=== PATIENT | female | born 1985 | race Caucasian/White ===

== ENCOUNTER → 2018-02-28 | Outpatient (CLI) | payer BC, OTHER ==
--- NOTE | 2018-03-01 13:07 | RADIOLOGY IMAGING REPORT ---
FACILITY: [facility] - [place], [place] PATIENT NAME: BRIANA HOOKS : [id number] MR: [id number] V: [id number] EXAM DATE: ORDERING PHYSICIAN: SHARON SMITH TECHNOLOGIST: Debra Vela RDMS(ABD,OBGYN,BR),RVT PROCEDURE:US RIGHT BREAST COMPLETE COMPARISON:None. INDICATIONS:Right breast lump @ 9:00 position FINDINGS: Multiple sonographic images were obtained the lateral portion of the Right breast from the 6-12 o'clock position revealing no sonographic abnormality. No mammographic abnormality identified to account for patient's palpable findings therefore clinical follow-up recommended. DIAGNOSTIC CATEGORY 2--BENIGN FINDING. RECOMMENDATIONS: CLINICAL EVALUATION. IMPRESSION: BIRADS 2: Benign finding. No mammographic or sonographic abnormality is identified to account for patient's palpable findings therefore clinical follow-up recommended. Of note a negative mammogram or Ultrasound report should not preclude biopsy of the clinically suspicious lesion. Dictated by: Ashlyn Hammond M.D. on 02/28/2018 at 18:15 Transcribed by: JOSE on 03/01/2018 at 9:59 Approved by: Ashlyn Hammond M.D. on 03/01/2018 at 13:06 [facility]
--- NOTE | 2018-03-01 13:08 | RADIOLOGY IMAGING REPORT ---
FACILITY: [facility] - [place] PATIENT NAME: BRIANA HOOKS : [id number] MR: [id number] V: [id number] EXAM DATE: ORDERING PHYSICIAN: SHARON SMITH TECHNOLOGIST: Vilma Collazo PROCEDURE:BILATERAL DIAGNOSTIC DIGITAL MAMMOGRAM WITH CAD ASSISTED INTERPRETATION & 3D TOMOSYNTHESIS COMPARISON:None. INDICATIONS:Right breast lump @ 9:00 position FINDINGS: A small amount of fibroglandular tissue is seen throughout the breasts. There is no demonstration of malignant appearing mass, malignant appearing calcifications or other secondary sign of malignancy in either breast. Today's Right breast Ultrasound likewise revealed no sonographic correlate therefore clinical follow-up recommend for patient's palpable findings. DIAGNOSTIC CATEGORY 2--BENIGN FINDING. RECOMMENDATIONS: CLINICAL EVALUATION. IMPRESSION: BIRADS 2: Benign finding. No mammographic or sonographic abnormality identified to account for patient's palpable findings therefore clinical follow-up recommended. Dictated by: Ashlyn Hammond M.D. on 02/28/2018 at 18:17 Transcribed by: JOSE on 03/01/2018 at 10:03 Approved by: Ashlyn Hammond M.D. on 03/01/2018 at 13:06 [facility]
== END ==
LOC: US 01:43
PROVIDERS: ATTEND Nurse Practitioner Women's Health
DX: N63.13 Unspecified lump in the right breast, lower outer quadrant (principal)
CPT/HCPCS: 77062; 77066

== ENCOUNTER 2019-02-11 18:13 | Emergency (ER) | payer OTHER ==
[2019-02-11 18:19] VITALS: BP 113/78
[2019-02-11] MEDS ORDERED: VERA120C9 PO (18:24)
--- NOTE | 2019-02-11 18:25 | ER Report ---
History and Physical Time Seen By MD: 18:22 Hx. of Stated Complaint: PATIENT CUT RIGHT WRIST WITH A BROKEN GLASS. BLEEDING CONTROLLED AT THIS TIME. LAST TETNUS WAS 2014 HPI/ROS CHIEF COMPLAINT: Right wrist laceration HISTORY OF PRESENT ILLNESS: 33-year-old female patient presents to emergency room with complaint of right wrist laceration. Patient states that she was washing dishes when one of the glasses broke. When I broke it exploded and she is cutting her wrist. She states that she did clean it out, looked for any glass in it and did not find anything. She came in for evaluation and treatment. Patient states her last tetanus shot was in 2014. She denies having any numbness and tingling. She denies having any weakness or hand. Allergies: Coded Allergies: No Known Drug Allergies (Unverified , 02/11/19) Home Meds Reported Medications Verapamil Hcl (VERAPAMIL ER) 120 Mg Cap24h.pel, 120 MG PO 02/11/19 Past Medical/Surgical History Patient has a past medical history of idiopathic intracranial hypertension, migraines. Patient denies any surgical history. Reviewed Nurses Notes: Yes Hx Substance Use Disorder: No Constitutional Vital Sign - Last 24 Hours 02/11/19 18:19 Temp 98.2 Pulse 97 Resp 16 B/P (MAP) 113/78 Pulse Ox 96 O2 Delivery Room Air Physical Exam General appearance: Alert no distress. Respiratory: Chest is non tender, lungs are clear to auscultation. Cardiac: Regular rate and rhythm. Skin: Patient has a 1.5 cm laceration to the medial aspect of the right wrist, there is no obvious tendon or ligament injury. It does go into the subcutaneous tissue. DIFFERENTIAL DIAGNOSIS: After history and physical exam differential diagnosis was considered for laceration, retained foreign body. Medical Decision Making EKG/Imaging Imaging XR WRIST 3 OR MORE VIEWS RT COMPARISON: None. HISTORY: laceration with broken glass TECHNIQUE: 3 views of the right wrist were obtained. FINDINGS: BONES: No significant arthropathy, fracture, malalignment, or significant osseous lesion. Carpal alignment within normal limits. SOFT TISSUES: No appreciable soft tissue swelling. No radiopaque foreign body or soft tissue gas. OTHER: Negative. IMPRESSION: No acute fracture or malalignment in the right wrist. No radiopaque foreign bodies. Report Dictated By: Gigi Toure at 02/11/2019 7:00 PM Report E-Signed By: Gigi Toure at 02/11/2019 7:01 PM ED Course/Re-evaluation ED Course Patient was admitted to an exam room, history of physical were obtained. Differential diagnoses were considered. On examination lungs are clear, heart is regular, abdomen soft nontender. Patient does have a 1.5 cm laceration to the medial aspect of the right wrist. The area was anesthetized, cleaned and repaired described below. X-rays done of the wrist which showed no retained foreign bodies. I did evaluate prior to suturing and did not find any foreign bodies. We will go ahead and discharge patient home at this time. She is to keep the wound dry for the next 48 hours. She is to change dressing as needed. She may follow-up in 7-10 days and sutures removed. Patient verbalized understanding and agreement with plan. Procedure: Laceration repair. Verbal consent was obtained from the patient. The 1.5 cm laceration on the medial aspect of the ventral side of the right wrist was anesthetized in the usual fashion. The wound was scrubbed, draped and explored to its base with a gloved finger. There were no deep structures involved. No tendon injury was identified. The wound was repaired with 3 simple interrupted sutures using 5-0 Prolene material. The wound repair was simple. The procedure was performed by myself. Decision to Disposition Date: Feb 11, 2019 Decision to Disposition Time: 19:10 Depart Departure Latest Vital Signs Vital Signs Date Time Temp Pulse Resp B/P (MAP) Pulse Ox O2 Delivery O2 Flow Rate FiO2 02/11/19 18:19 98.2 97 16 113/78 96 Room Air Impression: Primary Impression: Wrist laceration Condition: Improved Disposition: HOME OR SELF-CARE Referrals: SHEEBA PATE (PCP) Patient Instructions: Laceration (ED) Additional Instructions: Keep wound dry for 48 hours. Follow up with your primary care provider in the next 7-10 days to have sutures removed. Monitor for signs of infection; redness, swelling, heat, discharge, increasing pain or red streaking. Take Tylenol or Ibuprofen as needed for pain. Return to the ER with any concerns. You may change dressing as needed. Problem Qualifiers Primary Impression: Wrist laceration Encounter type: initial encounter Laterality: right Qualified Codes: S61.511A - Laceration without foreign body of right wrist, initial encounter SUZIE LINN Feb 11, 2019 18:25
--- NOTE | 2019-02-11 19:07 | RADIOLOGY IMAGING REPORT ---
FACILITY: [facility] PATIENT NAME: Chen Iglesias : 1985 MR: [id number] V: [id number] EXAM DATE: ORDERING PHYSICIAN: SUZIE LINN TECHNOLOGIST: Location: [facility] - [place] Patient: Chen Iglesias : 1985 Visit/Account:[id number] Date of Sevice: 02/11/2019 XR WRIST 3 OR MORE VIEWS RT COMPARISON: None. HISTORY: laceration with broken glass TECHNIQUE: 3 views of the right wrist were obtained. FINDINGS: BONES: No significant arthropathy, fracture, malalignment, or significant osseous lesion. Carpal ali gnment within normal limits. SOFT TISSUES: No appreciable soft tissue swelling. No radiopaque foreign body or soft tissue gas. OTHER: Negative. IMPRESSION: No acute fracture or malalignment in the right wrist. No radiopaque foreign bodies. Report Dictated By: Gigi Toure at 02/11/2019 7:00 PM Report E-Signed By: Ggii Toure at 02/11/2019 7:01 PM WSN:[id number]
== END 2019-02-11 19:14 | disposition home or self-care (01) ==
LOC: ER 18:18
DX: S61.511A Laceration without foreign body of right wrist, initial encounter (principal); W25.XXXA Contact with sharp glass, initial encounter; Y93.G1 Activity, food preparation and clean up
CPT/HCPCS: 99283